=== PATIENT | male | born 1995 | race African-American/Black ===

== ENCOUNTER 2019-12-16 18:51 | Emergency (ER) | payer OTHER ==
--- NOTE | 2019-12-16 19:32 | ER Document Report ---
HPI - HPI Time Seen by Provider: 12/16/19 19:19 Pain Level: 2 Notes: 24-year-old male patient presents the emergency department chief complaint of fever, congestion, body aches, sore throat. Patient reports symptoms ongoing for the last 2 to 3 days. He states he works at a [employer] and has been working through this. He has not taken any medications today for symptoms. - ROS ROS below otherwise negative: Yes Past Medical History - General Information source: Patient - Social History Smoking Status: Never Smoker Frequency of alcohol use: None Drug Abuse: None Family History: Reviewed & Not Pertinent - Past Medical History Cardiac Medical History: Reports: Hx Hypercholesterolemia Vertical Provider Document - CONSTITUTIONAL Notes: PHYSICAL EXAMINATION: GENERAL: Well-appearing, well-nourished and in no acute distress. HEAD: Atraumatic, normocephalic. EYES: Pupils equal round extraocular movements intact, conjunctiva are normal. ENT: Nares patent, no erythema, oropharynx appears normal, no tonsillar swelling or exudates. NECK: Normal range of motion LUNGS: No respiratory distress, lung sounds clear and equal bilaterally. Musculoskeletal: Normal range of motion NEUROLOGICAL: Normal speech, normal gait. PSYCH: Normal mood, normal affect. SKIN: Warm, Dry, normal turgor, no rashes or lesions noted. - INFECTION CONTROL TRAVEL OUTSIDE OF THE [place] IN LAST 30 DAYS: No Course - Re-evaluation Re-evalutation: 12/16/19 19:31 Patient agitated, very argumentative, declines any work-up other than rapid strep. He has refused flu test and Covid test. He states Covid is nothing body conspiracy. 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 He is tachycardic and has a fever of 102. He has been working at [employer] for the last few days with a fever up to 103. He does not want the Covid test because he does not want to have to stop working. A rapid strep is being obtained. 12/16/19 19:51 Patient is now at the front clerk requesting a Covid test. - Vital Signs Vital signs: Temp Pulse Resp BP Pulse Ox 102.1 F H 120 H 18 157/103 H 97 12/16/19 19:04 12/16/19 19:04 12/16/19 19:04 12/16/19 19:04 12/16/19 19:04 Discharge - Discharge Clinical Impression: Person under investigation for COVID-19, Viral illness Condition: Stable Disposition: HOME, SELF-CARE Instructions: COVID-19 Guidance for Persons Under Investigation Additional Instructions: Rapid strep was negative. COVID-19 test pending. Per the direction of the health department you must self quarantine until you have received your COVID-19 test results. Even if they are negative you must self quarantine until you have been symptom-free for 72 hours. Push fluids. Get plenty of rest. Tylenol or Motrin for fever and body aches. Good handwashing and stay away from others. Return to the emergency department with any new or worsening symptoms such as difficulty breathing, or any other worsening symptoms. Forms: Return to Work
[2019-12-17 02:22] VITALS: BP 148/97
== END 2019-12-16 20:40 | disposition home or self-care (01) ==
LOC: ER 18:51
DX: B34.9 Viral infection, unspecified (principal); J02.9 Acute pharyngitis, unspecified; R50.9 Fever, unspecified; R00.0 Tachycardia, unspecified; Z20.828 Contact with and (suspected) exposure to other viral communicable diseases
CPT/HCPCS: 99283; 87070; 87880; 87635; C9803